=== PATIENT | male | born 1970 | race Caucasian/White ===

== ENCOUNTER → 2018-02-07 12:28 | Outpatient (CLI) | payer MEDICAID, SELFPAY ==
--- NOTE | 2018-02-07 13:00 | MRI_ITS ---
STUDY: MRI LUMBAR SPINE WITHOUT CONTRAST REASON FOR EXAM: Male, 47 years old. Paraplegia. Migraines. Headaches. TECHNIQUE: Standardized fat and water weighted pulse sequences were obtained in the sagittal and axial planes. COMPARISON: None FINDINGS: T11-T12: (Sagittal only). Sclerosis noted in the T11 inferior endplate. Minimal anterior wedging of T12 superior endplate without bone edema may be developmental or from remote injury. Normal disc height, hydration and morphology. Normal central canal and bilateral intervertebral neural foramina. T12-L1: (Sagittal only). Tiny Schmorl's node in the T12 inferior endplate. Minimal anterior wedging of L1 superior endplate without bone edema may be developmental or from remote injury. Normal disc height, hydration and morphology. Normal central canal and bilateral intervertebral neural foramina. Normal lumbar lordosis. There is no substantial scoliosis. Normal conus medullaris that terminates at the T12-L1 disc level. L1-2: Minimal anterior marginal spurs. Normal endplates. Mild narrowing of the disc height with mild loss of disc hydration. No extruded disc fragments. Normal central canal and bilateral lateral recesses. Normal facet joints. Normal bilateral intervertebral neural foramina. L2-3: Anterior marginal spurs. Moderate disc space height narrowing. Normal endplates. Normal central canal and bilateral lateral recesses. Normal facet joints. Normal bilateral intervertebral neural foramina. L3-4: Normal endplates. Mild disc space height narrowing with mild loss of disc hydration. Normal central canal and bilateral lateral recesses. Normal facet joints. Normal bilateral intervertebral neural foramina. L4-5: Moderate disc space height narrowing. Minimal Modic type II degenerative vertebral marrow fatty changes underneath the vertebral endplates. Minimal degenerative retrolisthesis of L4 on L5. Normal central canal and bilateral lateral recesses. Mild right degenerative facet hypertrophy. Normal left facet joint. Normal bilateral intervertebral neural foramina. L5-S1: Normal endplates. Moderate disc space height narrowing with nearly grade 1 degenerative anterolisthesis of L5 on S1. Small posterior midline disc protrusion. Normal central canal and bilateral lateral recesses. Moderately pronounced right degenerative facet arthropathy. Mild left degenerative facet arthropathy. Mild stenosis of the bilateral intervertebral neural foramina. Normal visualized sacral ala. Normal visualized paraspinous soft tissue structures. MRI/Spine Lumbar (Routine) IMPRESSION: 1. No MRI evidence of lumbar extruded disc fragment. 2. Moderate L4-L5 disc space height narrowing with minimal degenerative retrolisthesis of L4 on L5 and mild right L4-L5 degenerative facet hypertrophy. 3. Moderate L5-S1 disc space height narrowing with nearly grade 1 degenerative anterolisthesis of L5 on S1, small posterior midline disc protrusion, moderately pronounced right degenerative facet hypertrophy and mild stenosis of the bilateral intervertebral neural foramina. 4. No MRI evidence of lumbar extruded disc fragment. 5. Minimal anterior wedging of the T12 and L1 superior endplates may be developmental or from remote injury. Electronically Signed: Armando Zacarias MD at 16:10 EDT , Service support ,
--- NOTE | 2018-02-07 13:45 | MRI_ITS ---
STUDY: MRI THORACIC SPINE WITH AND WITHOUT CONTRAST REASON FOR EXAM: Male, 47 years old. Paraplegia. Migraines. Headaches. TECHNIQUE: 13 ml of Gadavist was administered intravenously for the contrast portion of the examination. COMPARISON: None. FINDINGS: Normal kyphosis of the thoracic spine. There is no substantial scoliosis. Multiple Schmorl's nodes at T6, T7, T8, T10 and T11 vertebral bodies. Minimal anterior wedging of the T12 superior endplate. This is presumably developmental or from remote injury. T1-2, T2-3, T3-4, T4-5, T5-6, T6-7, T7-8, T8-9, T9-10, T10-11, T11-12: Normal endplates. Normal disc hydration, heights and morphology of the corresponding intervertebral discs. Normal central canal and intervertebral neural foramina at the corresponding levels. Normal visualized thoracic cord. Normal conus medullaris that terminates at the T12-L1 disc level.. The soft tissue structures are unremarkable. There is no enhancing abnormality. MRI/Spine Thoracic W/WO Contrast IMPRESSION: 1. No MRI evidence of thoracic extruded disc fragment or spinal stenosis. 2. Normal MRI of the thoracic spinal cord. 3. No MRI evidence of any enhancing lesions intradurally or extradurally. 4. Minimal anterior wedging of T12 superior endplates may be developmental or from remote injury. Electronically Signed: Armando Zacarias MD at 16:16 EDT , Service support ,
== END ==
PROVIDERS: Family Provider Internal Medicine Infectious Disease; PCP Internal Medicine Infectious Disease; Visit Provider Internal Medicine Infectious Disease
DX: G82.20 Paraplegia, unspecified (principal)
CPT/HCPCS: 72148; 72157; A9585